=== PATIENT | male | born 1985 | race Caucasian/White ===

== ENCOUNTER → 2020-10-30 | Outpatient (CLI) | payer SELFPAY | LOC: LAB 08:48 | PROVIDERS: ATTEND Nurse Anesthetist, Certified Registered | DX: Z01.812 Encounter for preprocedural laboratory examination (principal); R19.7 Diarrhea, unspecified; K62.5 Hemorrhage of anus and rectum; Z20.822 Contact with and (suspected) exposure to COVID-19 | CPT/HCPCS: U0003 ==

== ENCOUNTER → 2020-11-03 | Day surgery (SDC) | payer OTHER ==
[~2020-11-03] MED LIST: IPRATRPIUM/ALBUTEROL 0.5/2.5MG 3 ML NEBU. NEB PRN; IV RINGERS SOLUTION,LACTATED 1,000 ML IV SCH; LIDOCAINE 2% PF 5 ML VIAL. ONE; MIDAZOLAM HCL PF 2 MG/2 ML VIAL. IV ONE; ONDANSETRON PF 4 MG/2 ML VIAL. IV PRN; PROPOFOL 10,000 MCG/ML (20ML) VIAL IV ONE
[2020-11-03 09:00] VITALS: BP 126/68
--- NOTE | 2020-11-10 09:08 | PATHOLOGY ---
[facility] Accession Number: [id number] . 01 Material submitted: . PART A: colon - COLON BIOPSY RANDOM PART B: rectum - RECTAL POLYP . 01 Clinical history: . PRE-OPERATIVE DIAGNOSIS - RULE-OUT MICROSCOPIC COLITIS OPERATIVE PROCEDURE - COLONOSCOPY . 02 Diagnosis: A. Colonic mucosa, random colon biopsies: - No significant pathologic abnormalities. . B. Colorectal biopsy, rectal polyp: - Hyperplastic polyp. . 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 02 Comment: Sections of the random colon biopsy reveal multiple segments of colonic mucosa containing a few mucosal-associated lymphoid aggregates. There is no evidence of a chronic destructive colitis, lymphocytic colitis, or collagenous colitis. . Sections of the rectal biopsy reveal a hyperplastic polyp. There are no adenomatous changes or evidence of malignancy. . 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 02 Electronically signed: . Yunior Sandoval MD, Pathologist NPI- [id number] . 01 Gross description: . A. The specimen is received in formalin, labeled "Milton Gruber, random colon biopsy". Received are multiple segments of pale campbell tissue ranging in size from 0.2-0.5 cm in maximum dimensions. The specimen is submitted entirely in cassette A1. . B. The specimen is received in formalin, labeled "Milton Pines[place]en, rectal polyp". Received is a segment of pale campbell tissue measuring 0.3 cm in maximum dimensions. The specimen is submitted entirely in cassette B1. (CAA; 11/06/2020) QAC/QAC 11/06/2020 1119 Local . 02 Pathologist provided ICD-10: K62.1 . 02 CPT . 465092, [id number] Specimen Comment: A courtesy copy of this report has been sent to [phone] Specimen Comment: [phone] Specimen Comment: Report sent to / Performed at: 01 [facility] [address], [place] [id number] MD Dick Du MD Phone: [phone] Performed at: 02 [facility] [address] [place], [place] [id number] MD Yunior Sandoval MD Phone: [phone]
== END | disposition home or self-care (01) ==
LOC: SURG 07:19
PROVIDERS: ATTEND Emergency Medicine
DX: R19.7 Diarrhea, unspecified (principal); K92.1 Melena; K57.30 Diverticulosis of large intestine without perforation or abscess without bleeding; K64.8 Other hemorrhoids; K62.1 Rectal polyp; K63.89 Other specified diseases of intestine; Z72.89 Other problems related to lifestyle
CPT/HCPCS: 45380; J2001; J2704; J7120